=== PATIENT | male | born 1965 ===

== ENCOUNTER 2020-06-28 09:37 | Emergency (ER) | payer BC, SELFPAY ==
[2020-06-28 09:41] VITALS: BP 172/121; PULSE 101; RESP 18; TEMP 36.8; O2SAT 97; BMI 34.7
--- NOTE | 2020-06-28 11:02 | ED_ITS ---
HPI - Back Pain/Injury General Chief Complaint: Back Pain/Injury <SATURNINO Singh Last Filed: 06/28/20 11:13> Stated Complaint: back pain and rt foot pain <SATURNINO Singh Last Filed: 06/28/20 11:13> Time Seen by Provider: 06/28/20 10:19 <SATURNINO Singh Last Filed: 06/28/20 11:13> Source: patient <SATURNINO Singh Last Filed: 06/28/20 11:13> Mode of arrival: ambulatory <SATURNINO Singh Last Filed: 06/28/20 11:13> Limitations: no limitations <SATURNINO Singh Last Filed: 06/28/20 11:13> History of Present Illness HPI Narrative: 55yoM c PMHx of chronic back pain presenting to the ED c c/o worsening right mid to lower back pain since Friday worse today. Reports that he has had this pain in the past and has been prescribed Lidoderm patches and Flexeril by his PCP Dr. Herzog which he is taking without any symptomatic relief. Reports that he is trying to shift his body to compensate for the right mid to lower back pain and this is making his right foot have pain/swelling. I asked him if he had a history of kidney stones he reports he has never had a history of kidney stones and he does not believe this is kidney stones as he is not having any abdominal pain, difficulty urinating, hematuria or any other symptoms. Patient denies any additional complaints or concerns at this time. <SATURNINO Singh Last Filed: 06/28/20 11:13> Related Data Home Medications: Home Medications Medication Instructions Recorded Confirmed No Known Home Meds 06/28/20 06/28/20 Previous Rx's Medication Instructions Recorded cyclobenzaprine 10 mg PO TID PRN #10 tab 06/28/20 naproxen 500 mg PO BID PRN #10 tab 06/28/20 oxycodone-acetaminophen [Percocet] 1 tab PO Q6H PRN #10 tab 06/28/20 prednisone 40 mg PO DAILY 5 Days #10 tab 06/28/20 <SATURNINO Singh Last Filed: 06/28/20 11:13> Allergies/Adverse Reactions: Allergies Allergy/AdvReac Type Severity Reaction Status Date / Time No Known Allergies Allergy Unverified 03/02/20 17:15 <SATURNINO Singh - Last Filed: 06/28/20 11:13> Review of Systems Review of Systems: Constitutional : No trauma, No Weight loss, No Fever, No Chills, ENT/Mouth : No Hearing loss, No Ear Pain, No Nasal Congestion, No Sinus Pain, No Hoarseness, No sore throat, No Rhinorrhea, No Swallowing Difficulty Cardiovascular : No Chest Pain, No SOB Respiratory : No Cough, No Dyspnea Gastrointestinal : No Nausea, No Vomiting, No Diarrhea, No abdominal Pain, No Hematochezia, No Melena Genitourinary : No Dysuria, No Urinary Frequency, No Hematuria, No Urinary or Bowel Incontinence/retention Musculoskeletal : + Back pain, No neck pain, No joint stiffness, No joint swelling Skin : No Skin Lesions, No rash or signs of infection Neuro : No Weakness, No radiation, No Numbness, No Paresthesias, No headache, no loss of bowel or bladder incontinence, no saddle anesthesia Denies history of IV drug usage. <SATURNINO Singh - Last Filed: 06/28/20 11:13> Yes all other systems are reviewed and are negative <SATURNINO Singh - Last Filed: 06/28/20 11:13> [facility] [place] Past Medical History Attestation statement: The following information was validated with the patient. <SATURNINO Singh - Last Filed: 06/28/20 11:13> Medical History: Medical History No known health problems <SATURNINO Singh - Last Filed: 06/28/20 11:13> Social History Social History: Social History Advance Directives: No Advance Directives Information Provided: No <SATURNINO Singh Last Filed: 06/28/20 11:13> Physical Exam Vital Signs: Vital Signs: Last Vital Signs Temp 98.3 F 06/28/20 09:41 Pulse 92 06/28/20 11:37 Resp 18 06/28/20 09:41 BP 151/110 H 06/28/20 11:37 Pulse Ox 97 06/28/20 09:41 Body Mass Index 34.7 vital signs have been reviewed as normal and appeared to be correct. Blood pressure hypertensive. Heart rate tachycardic. Respiration rate normal. Temperature normal. Oxygen saturation normal. <SATURNINO Singh - Last Filed: 06/28/20 11:13> Vital Signs: Last Vital Signs Temp 98.3 F 06/28/20 09:41 Pulse 92 06/28/20 11:37 Resp 18 06/28/20 09:41 BP 151/110 H 06/28/20 11:37 Pulse Ox 97 06/28/20 09:41 Body Mass Index 34.7 <Mark Manning MD - Last Filed: 07/02/20 14:39> Appearance: Alert. Oriented X3. No acute distress. Head: Normal external exam. Normocephalic. Atraumatic. No Dominguez signs noted. No raccoon eyes noted Eyes: PERRLA. EOMI. Conjunctiva and sclera normal. Eyelids normal. ENT: Pharynx normal. Uvula midline. Moist mucous membranes. Neck: Normal inspection. Neck supple. FROM. No adenopathy. No meningeal signs. CVS: Normal heart rate and rhythm. Heart sound normal. No murmurs noted. Pulses normal throughout. Respiratory: No respiratory distress. Painless inspiration. Breath sounds normal. No wheezes/rales/rhonchi noted. Chest nontender. No accessory muscle usage noted or decreased air movement noted. Abdomen: Soft and nontender. Bowel sounds normal in all 4 quadrants. No distention noted. No organomegaly noted. No visible injury noted. Back: No CVA tenderness. Full range of motion noted. No obvious deformities, or edema. Mild para-spinal muscular tenderness from lumbar region to coccyx. Full ROM in back and lower extremities. 5/5 strength hip extension/flexion, abduction, adduction. Mild Lumbar pain with hip flexion against resistance. Straight leg raise test negative on right; Straight leg raise test negative on left; Reflexes normal ankle and knee bilaterally; EHL motor strength normal bilaterally Skin: Skin warm and dry. Normal skin color. Normal skin turgor. No rashes/lesions/lacerations noted. Extremities: No lower extremity edema. No calf tenderness noted. Extremities exhibit normal range of motion. Extremities nontender. Neuro: Oriented X 3. No motor deficit. No sensory deficit. Reflexes normal. <SATURNINO Singh - Last Filed: 06/28/20 11:13> Course Course Course Narrative: Pt c likely muscular pain, but could be herniated disc. Neuro exam shows no deficits. Not c/w AAA/epidural abscess/dissection.No high risk Hx (Incont, fever, immunosupp, recent surgery/LP, coag, signif trauma, wt loss, puls mass, hx/o Ca, TB, or IVDU) to warrant MRI today. I did question a possible kidney stone and offered a CT scan without contrast to evaluate for possible kidney stone although patient declined at this time and reports that if he has persistent pain he will return for a CT scan to evaluate for possible kidney stone although he does not believe it is a kidney stone due to his not having any difficulty urinating, abdominal pain or hematuria. Not c/w Pyelo/UTI/spinal fx. Not cauda equina syndrome. Patient's blood pressure is elevated at 172/121 and is mildly tachycardic 101. Although patient reports this is due to him being in pain and that he does not have any cardiac-related complaints at this time. DC c meds and f/u. <SATURNINO Singh - Last Filed: 06/28/20 11:13> I have reviewed the chart <Mark Manning MD - Last Filed: 07/02/20 14:39> MDM - Back Pain/Injury Differential Diagnosis Differential diagnosis: Likely lumbar radiculopathy, sciatica, strain of lumbar region, renal colic and thoracic back pain <SATURNINO Singh - Last Filed: 06/28/20 11:13> Medical Records Attestation: I reviewed the patient's medical records. <SATURNINO Singh - Last Filed: 06/28/20 11:13> Discharge Plan Discharge Clinical Impression: Strain of lumbar region, Elevated blood pressure reading <SATURNINO Singh - Last Filed: 06/28/20 11:13> Patient Disposition: Home, Self-Care <SATURNINO Singh - Last Filed: 06/28/20 11:13> Instructions: Lumbar Radiculopathy (ED), Hypertension (ED), Lower Back Exercises (ED) <SATURNINO Singh - Last Filed: 06/28/20 11:13> Additional Instructions: You had an elevated blood pressure today at 171/121 if you do not take blood pressure medication you should have this rechecked within a week to see if you have hypertension. If you start having any dizziness, headaches, nausea/vomiting, shortness of breath, chest pain or any other cardiac-related complaints please return back to the emergency department. If you continue to have back pain despite symptomatic treatment you should have a CT scan of her abdomen and pelvis to evaluate for possible kidney stones or any other acute processes. Return if you have any new or worsening symptoms follow-up with her primary care provider within a week for recheck blood pressure. <SATURNINO Singh - Last Filed: 06/28/20 11:13> Prescriptions: New cyclobenzaprine 10 mg tablet 10 mg PO TID PRN (Reason: muscle spasm) Qty: 10 RF: 0 prednisone 20 mg tablet 40 mg PO DAILY 5 Days Qty: 10 RF: 0 oxycodone-acetaminophen [Percocet] 5-325 mg tablet 1 tab PO Q6H PRN (Reason: pain) Qty: 10 RF: 0 naproxen 500 mg tablet 500 mg PO BID PRN (Reason: pain) Qty: 10 RF: 0 No Action No Known Home Meds RF: 0 <SATURNINO Singh - Last Filed: 06/28/20 11:13> Referrals: Mino,Isha Bee MD [Primary Care Provider] - 2 days (Your blood pressure was elevated today although you denied any cardiac-related complaints please have your blood pressure recheck within a week.) <SATURNINO Singh - Last Filed: 06/28/20 11:13> Stand Alone Forms: Work/School Release <SATURNINO Singh - Last Filed: 06/28/20 11:13> Interventions: ED Discharge Assessment Last Done: 06/28/20 11:38 <SATURNINO Singh - Last Filed: 06/28/20 11:13> Discharge Date/Time: 06/28/20 11:38 <SATURNINO Singh - Last Filed: 06/28/20 11:13> Print Language: Swedish <SATURNINO Singh - Last Filed: 06/28/20 11:13>
[2020-06-28 11:37] VITALS: BP 151/110; PULSE 92
== END 2020-06-28 11:38 | disposition home or self-care (01) ==
PROVIDERS: Emergency Provider Emergency Medicine; PCP Internal Medicine
DX: S39.012A Strain of muscle, fascia and tendon of lower back, initial encounter (principal); X58.XXXA Exposure to other specified factors, initial encounter; I10 Essential (primary) hypertension; Y93.9 Activity, unspecified; Y92.9 Unspecified place or not applicable; Y99.9 Unspecified external cause status
CPT/HCPCS: 99283

== ENCOUNTER 2020-11-21 14:42 | Outpatient (REF) | payer BC, SELFPAY | END 2020-11-21 14:43 | disposition home or self-care (01) | LOC: HO.HMGCLDS 14:42 | PROVIDERS: PCP Internal Medicine; Visit Provider Internal Medicine | DX: Z20.822 Contact with and (suspected) exposure to COVID-19 (principal) | CPT/HCPCS: C9803; U0003; U0005 ==

== ENCOUNTER 2023-01-27 14:58 | Outpatient (AMB) | payer BC, SELFPAY ==
--- NOTE | 2023-01-27 16:26 | MHC.OFFWIV ---
Intake Vital Signs 01/27/23 16:27 Weight 205 lb BP 140/90 H Blood Pressure Location Rt brachial Position Sitting Pulse 108 H Pulse Source Pulse Oximeter Pulse Oximetry (%) 95 Oxygen Delivery Method Room Air Intake Visit Reasons: EP, Pus in head Intake Note: Patient here for lump on right side of head that has discharge. pt states he has a hx of these from when he was younger and they normally drain and go away within a few days but this one has not. pt states it started with a small lump and then felt some pulsating every so often but it will not go away, he states it drained a bit. Patient Tobacco Use Status: Never used Tobacco Allergies No Known Allergies Allergy (Verified 01/27/23 19:46) Medication List - Last Reconciled 01/27/23 by Ricardo Espinosa MD hydrochlorothiazide 12.5 mg PO DAILY naltrexone 25 mg (1/2 x 50 mg) PO DAILY sulfamethoxazole-trimethoprim 800-160 mg (Bactrim DS) 1 tab PO BID 7 days vardenafil 20 mg PO DAILY Do you need a note to return to daycare/school/sports/work: No HPI EP, Pus in head HPI Details 57-year-old male presents to the office for a sick visit. Patient has an infection on the right side of his head above his right ear, symptoms of pain present. Symptoms present for the past few days. [facility] Medical History (Updated 01/27/23 @ 19:50 by Ricardo Espinosa MD) Erectile dysfunction Hypercholesterolemia Lumbar degenerative disc disease No known health problems Obesity (BMI 30-39.9) Surgical History (Updated 01/31/21 @ 20:33 by Isha Herzog MD) History of bilateral carpal tunnel release Social History (Updated 02/05/22 @ 15:30 by Isha Herzog MD) Housing: House Alcohol intake: current Patient Tobacco Use Status: Never used Tobacco e-Cigarette/Vaping Use: Never Used Second Hand Smoke Exposure: No service: No Current occupational status: employed Cognitive needs: No Hearing needs: No Vision needs: No Physical Exam Vital Signs: Last Vital Signs Pulse 108 H 01/27/23 16:27 BP 140/90 H 01/27/23 16:27 Pulse Ox 95 01/27/23 16:27 Oxygen Delivery Method Room Air 01/27/23 16:27 HEENT Other: Scalp: Right temporal area about the ear: Small erythematous area with tiny amount of pus. Surrounding area slightly tender. Assessment & Plan Assessment & Plan (1) Cellulitis: Code(s): L03.90 - Cellulitis, unspecified Plan: Cephalexin called in. Will call the surgeon tomorrow to see if this wound can be drained. Medications: New sulfamethoxazole-trimethoprim 800-160 mg (Bactrim DS) 1 tab PO BID 7 days 14 tabs 0RF Coding Level of Care Code Est Pt Level 3 (35850) Diagnoses Cellulitis L03.90
[2023-01-27 16:27] VITALS: BP 140/90; PULSE 108; O2SAT 95
== END 2023-01-27 16:53 | disposition home or self-care (01) ==
PROVIDERS: PCP Internal Medicine; Visit Provider Internal Medicine
DX: L03.90 Cellulitis, unspecified (principal)
CPT/HCPCS: 99213

== ENCOUNTER 2023-01-28 14:16 | Outpatient (AMB) | payer BC, SELFPAY ==
--- NOTE | 2023-01-28 14:33 | MHC.OFFVIS ---
Intake Vital Signs 01/28/23 14:40 Height 5 ft 6 in Weight 203 lb 6 oz BMI 32.8 BP 144/88 H Blood Pressure Location Lt brachial Position Sitting Pulse 104 H Intake Visit Reasons: cellulitis right temporal, on abx Intake Note: Patient is seen in office for evaluation and treatment of cellulitis of right scientology. Patient c/o: lump behind right ear, onset one weeks, started discharging on Friday, currently taking antibiotics since yesterday would like to change antbx due to upset stomach, admits to redness and discharge Base Ply Hand Required: No Accompanied by: Self / Same As Patient Allergies No Known Allergies Allergy (Verified 01/28/23 14:40) Medication List - Last Reconciled 01/28/23 by Sean Obando MD doxycycline hyclate 100 mg PO BID hydrochlorothiazide 12.5 mg PO DAILY naltrexone 25 mg (1/2 x 50 mg) PO DAILY vardenafil 20 mg PO DAILY HPI HPI Comments History of Present Illness Details 57-year-old male patient presenting with a painful infected cyst of the right scalp behind the right ear. He reports a previous history of a scalp infection as a child on the left side but denies any other areas of infection. The current cyst began approximately week ago became quite red and painful. He was seen and the [place] office and started on antibiotics yesterday. He presents today for possible incision and drainage. The lesion started opening 2 days ago. He continued to have pain until yesterday when he started antibiotics which actually helped the pain. He denies any fever or chills. [facility] Medical History Erectile dysfunction Hypercholesterolemia Lumbar degenerative disc disease No known health problems Obesity (BMI 30-39.9) Surgical History History of bilateral carpal tunnel release Social History Housing: House Alcohol intake: current Patient Tobacco Use Status: Never used Tobacco e-Cigarette/Vaping Use: Never Used Second Hand Smoke Exposure: No service: No Current occupational status: employed Cognitive needs: No Hearing needs: No Vision needs: No Review of Systems Const All systems reviewed & are unremarkable except as noted in HPI and below Denies chills, Denies fever(s), Denies headache(s), Denies poor appetite and Denies weakness ENT Denies headache(s) Card Denies chest pain, Denies irregular heart rhythm, Denies palpitations and Denies dyspnea Resp Denies cough, Denies excessive phlegm production and Denies dyspnea GI Denies abdominal pain, Denies bloating, Denies change in bowel habits, Denies constipation, Denies heartburn, Denies diarrhea, Denies nausea and Denies vomiting Denies difficulty urinating and Denies urinary frequency Musc Denies back pain, Denies muscle weakness and Denies numbness Skin/Breast Reports as per HPI, Denies changing lesions and Denies unusual bruising Neuro Denies headache(s), Denies numbness, Denies paresthesias and Denies weakness Psych Denies anxiety and Denies depression Endo Denies palpitations Guille/Lymph Denies lymphadenopathy Physical Exam Vital Signs: Last Vital Signs Pulse 104 H 01/28/23 14:40 BP 144/88 H 01/28/23 14:40 BMI result Body Mass Index 32.8 Const General: cooperative and no acute distress Nutritional Appearance: well nourished Orientation/consciousness: patient oriented x3 Limitations: no limitations HEENT Head: Yes normocephalic and Yes atraumatic Head images: 1. Infected sebaceous cyst of the posterior scalp and postauricular region with surrounding area of erythema/cellulitis. Lesion is fluctuant but draining a small amount of purulence discharge. Ears: hearing grossly normal bilaterally Resp Effort & Inspection: normal respiratory effort, no audible wheezes, no cough and no respiratory distress Cardio Jugular venous distension: no JVD GI Inspection: Yes normal to inspection Skin Other: Warm, dry, no rash Neuro General: patient oriented x3 Extrem General: Yes no clubbing, cyanosis or edema Office Procedures I&D Drain Details: Preoperative diagnosis: Infected sebaceous cyst abscess right scalp Postoperative diagnosis: Same Procedure: Incision and drainage sebaceous cyst abscess right scalp Surgeon: Sean Obando MD Worsted Winder: None Anesthesia: Lidocaine 1% with epinephrine Indications for procedure: 57-year-old male patient with an infected sebaceous cyst of the posterior right scalp as noted above Operative findings: Abscess posterior right scalp Specimen: None Estimated blood loss: Less than 2 mL Complications: None Procedure details: Patient was placed in a left lateral decubitus position. The patient's scalp on the right side was prepped with Betadine and draped in a sterile fashion. Local anesthesia was infiltrated around the lesion. Incision was then made with an 11 blade. Hemostat was then used to open up the abscess cavity. This was then irrigated with saline solution. Packing was inserted using quarter-inch Nu Gauze. Sterile dressings were then applied. The patient tolerated the procedure well. He was discharged to home in stable condition. [id number]-Kleelfpb of Skin Abscess, simple All charges added?: Procedure code (CPT) selection complete Assessment & Plan Assessment & Plan (1) Abscess of head: Code(s): L02.811 - Cutaneous abscess of head [any part, except face] Plan 57-year-old male patient presenting with an abscess of the posterior scalp right side suggestive of an infected sebaceous cyst. I recommended incision and drainage to allow complete drainage. After discussion of the procedure, risks, and alternatives, he consents to the procedure. This was performed today in the office with production of a larger collection of purulence fluid. Packing was inserted as well. The patient tolerated the procedure well and will return in 1 week for follow-up examination. He reports stomach irritation from the antibiotics afraid he will be switched to doxycycline. Medications: New doxycycline hyclate 100 mg PO BID 14 tabs 0RF L02.811 - Cutaneous abscess of head [any part, except face] Coding Level of Care Code New Pt Level 4 (53525) Diagnoses Abscess of head L02.811 CPT Codes I&D Drain - Drain 1: 28006-Fypgrygh of Skin Abscess, simple ([id number])
[2023-01-28 14:40] VITALS: BP 144/88; PULSE 104; BMI 32.8
== END 2023-01-28 14:58 | disposition home or self-care (01) ==
PROVIDERS: PCP Internal Medicine; Referring Provider Internal Medicine; Visit Provider Surgery
DX: L72.3 Sebaceous cyst (principal); L02.811 Cutaneous abscess of head [any part, except face]
CPT/HCPCS: 10060; 99204

== ENCOUNTER → 2023-01-28 14:16 | Outpatient (BNVA) | payer BC, SELFPAY | PROVIDERS: PCP Internal Medicine; Referring Provider Internal Medicine; Visit Provider Surgery | DX: L02.811 Cutaneous abscess of head [any part, except face] (principal) | CPT/HCPCS: 10060 ==

== ENCOUNTER 2023-02-04 15:11 | Outpatient (AMB) | payer BC, SELFPAY ==
--- NOTE | 2023-02-04 15:12 | MHC.OFFVIS ---
Intake Vital Signs 02/04/23 15:17 Height 5 ft 6 in Weight 196 lb 2 oz BMI 31.7 BP 154/100 H Blood Pressure Location Lt brachial Position Sitting Pulse 101 H Intake Visit Reasons: s/p I&D abscess right temporal Intake Note: Patient is seen in office for post op assessment post I&D of right temporal abscess. 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 He tolerated the procedure well and feels much improved today. He denies any redness or discharge and generally feels back to normal. He does have some itchiness in the skin. [facility] Medical History Erectile dysfunction Hypercholesterolemia Lumbar degenerative disc disease No known health problems Obesity (BMI 30-39.9) Surgical History History of bilateral carpal tunnel release Social History Housing: House Alcohol intake: current Patient Tobacco Use Status: Never used Tobacco e-Cigarette/Vaping Use: Never Used Second Hand Smoke Exposure: No service: No Current occupational status: employed Cognitive needs: No Hearing needs: No Vision needs: No Physical Exam Const General: no acute distress Nutritional Appearance: well nourished Orientation/consciousness: patient oriented x3 HEENT Other: Incision and drainage site is healed without redness or fluctuance. Nontender to palpation. Previous cellulitis is now resolved. Head images: 1. Incision and drainage site posterior right scalp Neuro General: patient oriented x3 Assessment & Plan Assessment & Plan (1) Abscess of head: Code(s): L02.811 - Cutaneous abscess of head [any part, except face] Plan Patient returns 1 week following incision and drainage of an abscess of the posterior right scalp. He tolerated the procedure well and his wounds are well healed. He should follow up as needed. Coding Level of Care Code Global (53327) Diagnoses Abscess of head L02.811
[2023-02-04 15:17] VITALS: BP 154/100; PULSE 101; BMI 31.7
== END 2023-02-04 15:19 | disposition home or self-care (01) ==
PROVIDERS: PCP Internal Medicine; Visit Provider Surgery
DX: L02.811 Cutaneous abscess of head [any part, except face] (principal)
CPT/HCPCS: 99024

== ENCOUNTER → 2023-02-04 15:11 | Outpatient (BNVA) | payer BC, SELFPAY | PROVIDERS: PCP Internal Medicine; Visit Provider Surgery | DX: L02.811 Cutaneous abscess of head [any part, except face] (principal) ==

== ENCOUNTER 2023-04-19 09:12 | Outpatient (AMB) | payer BC, SELFPAY ==
--- NOTE | 2023-04-19 09:44 | AM.OFFWIN_ITS ---
Intake Vital Signs 04/19/23 09:50 Height 5 ft 6 in Weight 184 lb 6 oz BMI 29.8 BP 142/78 H Blood Pressure Location Lt brachial Position Sitting Pulse 110 H Pulse Source Pulse Oximeter Temp 98.0 F Temp Source Temporal Artery Scan Pulse Oximetry (%) 97 Oxygen Delivery Method Room Air Intake Visit Reasons: EP Pain LT under rib cage Intake Note: pt is here for c/o left side rib/kidney area pain for 3 weeks Patient Tobacco Use Status: Never used Tobacco Allergies No Known Allergies Allergy (Verified 04/19/23 09:51) Do you need a note to return to daycare/school/sports/work: Yes HPI EP Pain LT under rib cage HPI Details Patient is a 58-year-old male who comes to the walk-in clinic complaining of a dull aching pain to his left flank the last 2-3 weeks. He states that he has also noticed some weight loss recently. He denies any issues urinating, or with bowel movements. He has no respiratory symptoms, fever or chills, nausea vomiting or diarrhea chest pain or shortness of breath, weakness or dizziness, other significant associated symptoms. He states that he sees Dr. Braun, and that he is due to have some blood work done for him. He is planning to see him in late June, but was unable to the appointment up. He has been taking anti-inflammatories which does somewhat relieve his discomfort. No immunosuppressive conditions reported. [facility] Medical History Obesity (BMI 30-39.9) Lumbar degenerative disc disease Erectile dysfunction Hypercholesterolemia No known health problems Surgical History History of bilateral carpal tunnel release Social History Housing: House Alcohol intake: current Patient Tobacco Use Status: Never used Tobacco e-Cigarette/Vaping Use: Never Used Second Hand Smoke Exposure: No service: No Current occupational status: employed Cognitive needs: No Hearing needs: No Vision needs: No Review of Systems Const All systems reviewed & are unremarkable except as noted in HPI and below Physical Exam Vital Signs: Last Vital Signs Temp 98.0 F 04/19/23 09:50 Pulse 110 H 04/19/23 09:50 BP 142/78 H 04/19/23 09:50 Pulse Ox 97 04/19/23 09:50 Oxygen Delivery Method Room Air 04/19/23 09:50 BMI result Body Mass Index 29.8 Const General: cooperative, healthy appearing, comfortable, no acute distress, alert, awake, Physically active and well groomed; No anxious, diaphoretic, ill appearing, intoxicated appearing, poor hygiene or tired appearing Nutritional Appearance: average body habitus Orientation/consciousness: oriented to person Limitations: no limitations Resp Effort & Inspection: normal respiratory effort, able to speak in complete sentences, no audible wheezes, no cough, no grunting, not labored, no nasal flaring, no retractions and symmetric chest movement Auscultation: clear to auscultation bilaterally, no crackles, no rales, no rhonchi, no wheezes, lung sounds not diminished and No rub present Cardio Rate: regular rate Rhythm: regular rhythm GI Inspection: Yes normal to inspection, No Abdominal wall edema, No distended and No obesity Palpation (GI): Soft to palpation, not firm, Tenderness to palpation present (GI) (Left flank), not rigid, No hepatosplenomegaly present, no masses and No Ascites present Percussion: Yes normal to percussion Auscultation: normal bowel sounds Other: Left flank tender to palpation General: No CVA tenderness Back/Spine/Pelvis Back: No CVA tenderness Skin Other: Good color, warm and dry Neuro General: oriented to person Psych Appearance: grossly normal Mental Status: mental status grossly normal Speech and movement: Normal speech and movement present Affect: normal affect Attitude: cooperative Thought process: Normal thought process present Insight: Good insight present (Psych) Judgement: Good judgement present (Psych) Results AMB Urinalysis, Automated UA Leukoctes 0 Deana/uL Last Edit by Robert Lawrence CMA on 04/19/23 11:05 UA Nitrite Negative Last Edit by Robert Lawrence CMA on 04/19/23 11:05 UA Urobilinogen 0.2 mg/dL Last Edit by Robert Lawrence CMA on 04/19/23 11 :05 UA Protein 300 mg/dL Last Edit by Robert Lawrence CMA on 04/19/23 11:05 UA pH 6.0 Last Edit by Robert Lawrence CMA on 04/19/23 11:05 UA Blood 80 Eugenio/uL Last Edit by Robert Lawrence CMA on 04/19/23 11:05 UA Specific [place] 1.030 Last Edit by Robert Lawrence CMA on 04/19/23 11:05 UA Ketone Positive Last Edit by Robert Lawrence CMA on 04/19/23 11:05 UA Bilirubin 0 mg/dL Last Edit by Robert Lawrence CMA on 04/19/23 11:05 UA Glucose 1000 mg/dL Last Edit by Robert Lawrence CMA on 04/19/23 11:05 Results Reviewed Results Reviewed: Laboratory Last Values Urine pH (Auto) 6.0 04/19/23 11:04 Specific [place] (Auto) 1.030 04/19/23 11:04 Urine Protein (Auto) 300 mg/dL 04/19/23 11:04 Glucose (UA)(Auto) 1000 mg/dL 04/19/23 11:04 Urine Ketones (Auto) Positive 04/19/23 11:04 Urine Blood (Auto) 80 Eugenio/uL 04/19/23 11:04 Urine Nitrite (Auto) Negative 04/19/23 11:04 Urine Bilirubin (Auto) 0 mg/dL 04/19/23 11:04 Urine Urobilinogen (Auto) 0.2 mg/dL 04/19/23 11:04 Leukocyte Esterase (Auto) 0 Deana/uL 04/19/23 11:04 Assessment & Plan Assessment & Plan (1) Flank pain, acute: Code(s): R10.9 - Unspecified abdominal pain Plan: Patient complains of left flank discomfort for the last 2-3 weeks, associated with weight loss. KUB plain film x-ray today was unremarkable for acute issues. We did discuss that he could have a kidney stone, or pyelonephritis starting, or another kidney issue. His vital signs are stable though, and he is appropriate for outpatient follow up. His in office urine dip was remarkable for proteinuria, ketones, hematuria, and glucosuria. I did start him on antibiotic due to the abnormal urine, and it is pending culture and microscopy testing. He had some labs drawn today, and we can follow up with the results with PCP. I told patient that I would send his visit note over to his PCP to see if they want to see him sooner, as he isn't scheduled until the end of June for a follow-up. He knows to call them back sooner if symptoms return, or he can be evaluated here again. He knows to go to the emergency department with worrisome symptoms. Orders: Orders XR KUB 04/19/23 R10.9 - Unspecified abdominal pain Complete Blood Count Auto Diff 04/19/23 R10.9 - Unspecified abdominal pain AMB Urinalysis Automated 04/19/23 M54.50 - Low back pain, unspecified UA CC w/rflx Micro + Cult 04/19/23 R30.0 - Dysuria Comprehensive [place]. Panel Fast 04/19/23 R10.9 - Unspecified abdominal pain Medications: New sulfamethoxazole-trimethoprim 800-160 mg (Bactrim DS) 1 tab PO BID 7 days 14 tabs 0RF naproxen 500 mg PO BID 14 days PRN 28 tabs 0RF pain Coding Level of Care Code Est Pt Level 4 (82989) Diagnoses Flank pain, acute R10.9
[2023-04-19 09:50] VITALS: BP 142/78; PULSE 110; TEMP 36.7; O2SAT 97; BMI 29.8
== END 2023-04-19 11:34 | disposition home or self-care (01) ==
PROVIDERS: PCP Internal Medicine; Visit Provider Physician Assistant Medical
DX: R10.9 Unspecified abdominal pain (principal); M54.50 Low back pain, unspecified
CPT/HCPCS: 81003; 99214

== ENCOUNTER 2023-04-19 10:45 | Outpatient (REF) | payer BC, SELFPAY ==
--- NOTE | ~2023-04-19 | XR_ITS ---
EXAMINATION: XR ABDOMEN KUB CLINICAL INDICATION: Abdominal pain. Left flank pain 2 weeks. No trauma. COMPARISON: None available. TECHNIQUE: AP view of the abdomen. FINDINGS: The bowel gas pattern is normal with no evidence of ileus or obstruction. No unusual soft tissue calcifications are noted. The bones are unremarkable. XR/XR KUB IMPRESSION: Unremarkable examination.
[2023-04-19 13:34] LABS: MANUAL DIFF FLAG NO
[2023-04-19 13:38] LABS: Basophils Percent Auto 0.6 % (0-2); Eosinophils Percent Auto 0.4 % (0-4); Hematocrit 40.2 % (42.0-52.0); Hemoglobin 14.4 g/dl (14.0-18.0); Imm Gran Abs Auto 0.03 X10*3/uL (0.00-0.03); Imm Gran Pct Auto 0.4 % (0.0-0.4); Lymphocytes Percent Auto 13.1 % (20-40); Mean Corpuscular HGB Conc 35.8 g/dl (31.0-36.0); Mean Corpuscular Hemoglobin 33.6 pg (27.0-33.0); Mean Corpuscular Volume 93.7 fL (80.0-98.0); Mean Platelet Volume 10.1 fL (9.4-12.4); Monocytes Absolute Auto 0.7 X10*3/uL (0.1-1.2); Neutrophils Absolute Auto 5.6 x10*3/uL (2.0-8.3); Neutrophils Percent Auto 76.5 % (45-73); Platelet Count 251 X10*3/uL (160-400); Red Blood Count 4.29 X10*6/uL (4.60-5.80); Red Cell Distribution Width 11.7 % (11.0-16.0); White Blood Count 7.3 X10*3/uL (4.8-10.8)
[2023-04-19 13:46] LABS: Estimated Average Glucose 303 mg/dL; Hemoglobin A1c % 12.2 % (<6.0)
[2023-04-19 14:02] LABS: Alanine Aminotransferase 26 U/L (0-40); Albumin Level 4.2 g/dL (3.5-5.0); Alkaline Phosphatase 180 U/L (39-117); Anion Gap 18 (12-20); Aspartate Amino Transferase 17 U/L (5-37); Bilirubin Total 0.5 mg/dL (0.0-1.0); Blood Urea Nitrogen 9 mg/dL (9-16); Carbon Dioxide 25 mmol/L (22-29); Chloride 101 mmol/L (96-108); Cholesterol 263 mg/dL (<200); Estimated Glomerular Filt Rate > 60; Glucose Fasting 226 mg/dL (60-99); Glucose Random 225 mg/dL (60-115); HDL Cholesterol 32 mg/dL (>40); Sodium 140 mmol/L (135-145); Total Protein 7.8 g/dL (6.5-8.0); Triglycerides 455 mg/dL (<150)
[2023-04-19 14:16] LABS: Free T4 (Free Thyroxine) 0.95 ng/dL (0.71-1.85); Thyroid Stimulating Hormone 0.35 uIU/mL (0.32-4.0)
[2023-04-19 14:30] LABS: Folate 13.6 ng/mL (> or = 4.0); Prostate Specific Antigen Scr 1.11 ng/mL (<0.05-4.0); Vitamin B12 354 pg/mL (200-900)
== END 2023-04-19 10:46 | disposition home or self-care (01) ==
LOC: HO.HMGCX 10:45
PROVIDERS: PCP Internal Medicine; Visit Provider Physician Assistant Medical
DX: Z12.5 Encounter for screening for malignant neoplasm of prostate (principal); R10.9 Unspecified abdominal pain; I10 Essential (primary) hypertension; R73.02 Impaired glucose tolerance (oral); E78.00 Pure hypercholesterolemia, unspecified
CPT/HCPCS: 36415; 74018; 80053; 80061; 82607; 82746; 83036; 84153; 84439; 84443; 85025

== ENCOUNTER 2023-04-19 11:45 | Outpatient (REF) | payer BC, SELFPAY ==
[2023-04-19 13:39] LABS: Appearance Urine Cloudy; Color Urine Yellow; Glucose Urine UA >=1000 mg/dL (Negative); Leukocyte Esterase Urine Trace (Negative); Nitrite Urine Negative (Negative); PH 5.5 (5.0-9.0); Specific Gravity - Urine >= 1.030 (1.005-1.025); UMIC TRIGGER UACC YES; Urine Blood Moderate (2+) (Negative); Urine Ketones >=160 mg/dL (Negative); Urine Protein 100 (2+) mg/dL (Neg-Trace)
[2023-04-19 13:56] LABS: Bacteria Urine None Seen (None Seen); Squamous Epithelial Cell Urine 0-2 /HPF (0-2); UACC Culture Trigger YES
== END 2023-04-19 11:46 | disposition home or self-care (01) ==
LOC: HO.LAB 11:45
PROVIDERS: Visit Provider Physician Assistant Medical
DX: R30.0 Dysuria (principal)
CPT/HCPCS: 81001; 87086

== ENCOUNTER 2023-04-24 12:43 | Outpatient (AMB) | payer BC, SELFPAY ==
[2023-04-24 12:48] VITALS: BP 152/82; PULSE 104; O2SAT 98; BMI 29.5
--- NOTE | 2023-04-24 12:48 | MHC.PC.OV ---
Vital Signs 04/24/23 12:48 Height 5 ft 6 in Weight 183 lb BMI 29.5 BP 152/82 H Blood Pressure Location Lt brachial Position Sitting Pulse 104 H Pulse Source Pulse Oximeter Pulse Oximetry (%) 98 Oxygen Delivery Method Room Air Intake Visit Reasons: Follow up after walk in visit on 04/19 Allergies No Known Allergies Allergy (Verified 04/19/23 09:51) Medication List - Last Reconciled 04/24/23 by Isha Herzog MD blood sugar diagnostic (FreeStyle Lite Strips) As directed check the BS QD blood-glucose meter (FreeStyle Lite Meter kit) As directed hydrochlorothiazide 12.5 mg PO DAILY lancets (FreeStyle Lancets) As directed check BS QD lisinopril 5 mg PO DAILY metformin 500 mg PO BIDWMEAL naltrexone 25 mg (1/2 x 50 mg) PO DAILY naproxen 500 mg PO BID PRN 14 days sulfamethoxazole-trimethoprim 800-160 mg (Bactrim DS) 1 tab PO BID 7 days vardenafil 20 mg PO DAILY Tobacco use date assessed: 04/24/23 Dental Screening Dental Screen Date: 04/24/23 Did you have a dental visit in the last 12 months?: No Did you have a dental problem in the last 6 months where you did not have access to dental care?: No Was dental information given to patient?: Patient has dentist HPI Follow up after walk in visit on 04/19 HPI Details 58-year-old obese male with newly diagnosed diabetes mellitus hypertension hypercholesterolemia and history of alcohol abuse coming in for follow-up. Last seen in January 2022. Recently seen in the Urgent Center in April for flank pains left in January was seen by the surgeon for an abscess on the head which was drained [facility] Medical History (Updated 04/24/23 @ 12:56 by Isha Herzog MD) Impaired glucose tolerance Obesity (BMI 30-39.9) Lumbar degenerative disc disease Erectile dysfunction Hypercholesterolemia No known health problems Surgical History History of bilateral carpal tunnel release Social History Housing: House Alcohol intake: current Patient Tobacco Use Status: Never used Tobacco e-Cigarette/Vaping Use: Never Used Second Hand Smoke Exposure: No service: No Current occupational status: employed Cognitive needs: No Hearing needs: No Vision needs: Yes Questionnaire PHQ-9 Over the last 2 weeks, how often have you been bothered by any of the following problems? 1. Little interest or pleasure in doing things: not at all 2. Feeling down, depressed, or hopeless: not at all 3. Trouble falling or staying asleep, or sleeping too much: not at all 4. Feeling tired or having little energy: not at all 5. Poor appetite or overeating: not at all 6. Feeling bad about yourself - or that you are a failure or have let yourself or your family down: not at all 7. Trouble concentrating on things, such as reading the newspaper or watching television: not at all 8. Moving or speaking so slowly that other people could have noticed. Or the opposite - being so fidgety or restless that you have been moving around a lot more than usual: not at all 9. Thoughts that you would be better off or of hurting yourself in some way: not at all Total score: 0 Depression Screening Interpretation: Negative Depression Screening Done: Yes Source: Developed by Drs. Len Villatoro, Riya Ignacio, Favio Breen and colleagues, with an educational irena from [employer]. Thrive Questionnaire Date Thrive assessed: 04/24/23 I am a: Patient What is your living situation today?: I have a steady place to live Within the past 12 months, did the food you bought not last and you didn't have the money to get more?: Never true Within the past 12 months, did you worry whether your food would run out before you got money to buy more?: Never true Do you have trouble paying for medicines?: No Do you have trouble getting transportation to medical appointments?: No Do you have trouble paying your heating and electricity bill?: No Do you have trouble taking care of your child, family member or friend?: No Do you have trouble with day-to-day activities such as bathing, preparing meals, shopping, managing finances, etc.?: No Are you currently unemployed and looking for a job?: No Are you interested in more education?: No Currently or been in a relationship where the following occur: no concerns reported AUDIT C Alcohol Use Questionnaire (AUDIT-C) 1. How often do you have a drink containing alcohol?: Monthly or less 2. How many drinks containing alcohol do you have on a typical day when you are drinking?: 1 or 2 3. How often do you have six or more drinks on one occasion?: Never Total Score: 1 TOREY-7 AMB Questionnaire TOREY-7 Date TOREY - 7 assessed: 04/24/23 Feeling nervous, anxious, or on edge: 0 = Not at all Not being able to stop or control worryin = Not at all Worrying too much about different things: 0 = Not at all Trouble relaxin = Not at all Being so restless that it is hard to sit still: 0 = Not at all Becoming easily annoyed or irritable: 0 = Not at all Feeling afraid as if something awful might happen: 0 = Not at all Total TOREY-7 score (0-4 normal; 5-9 mild; 10-14 moderate; 15-21 severe): 0 Source: Developed by Drs. Len Villatoro, Riya Ignacio, Favio Breen and colleagues, with an educational irena from [employer]. Physical exam (Primary Care) Vital Signs: Last Vital Signs Pulse 104 H 04/24/23 12:48 BP 152/82 H 04/24/23 12:48 Pulse Ox 98 04/24/23 12:48 Oxygen Delivery Method Room Air 04/24/23 12:48 BMI result Body Mass Index 29.5 Tobacco/Smoking Status: Tobacco use Status Tobacco use date assessed 04/24/23 04/24/23 12:50 Patient Tobacco Use Status Never used Tobacco 04/24/23 12:50 e-Cigarette/Vaping Use Never Used 04/24/23 12:50 PHQ-9: PHQ-9 Score PHQ-9: Total score 0 04/24/23 12:50 Depression Screening Interpretation: Negative Thrive Assessment: Date of Thrive Assessment Date Thrive assessed 04/24/23 04/24/23 12:50 Currently or been in a relationship where the following occur: no concerns reported Const General: alert; No acute distress Eyes Conjunctivae: conjunctivae normal Resp Auscultation: clear to auscultation bilaterally Cardio Rate: regular rate Rhythm: regular rhythm GI Inspection: Yes normal to inspection Extrem General: Yes normal to inspection and No edema Assessment and Plan Assessment & Plan (1) Type 2 diabetes mellitus with hyperglycemia: Code(s): E11.65 - Type 2 diabetes mellitus with hyperglycemia Plan: Decrease the amount of carbohydrate intake, pasta, bread, rice and potatoes are all sugar and that is aside from all the sweet stuff, remember that fruits are good but they are Sweet also. Hemoglobin A1c goal of less than 6.5 (2) Overweight (BMI 25.0-29.9): Code(s): E66.3 - Overweight Plan: Diet and exercise keep well hydrated (3) Hypercholesterolemia: Code(s): E78.00 - Pure hypercholesterolemia, unspecified Plan: Avoid fried foods, chicken skin, eggs, butter margarine, pastries and meat. Be it pork or beef they have a lot of cholesterol LDL goal of less than 100 and triglyceride of less than 150 (4) Hypertension: Code(s): I10 - Essential (primary) hypertension Plan: Will start on blood pressure medication Orders: Orders Lipid Panel Today E78.00 - Pure hypercholesterolemia, unspecified Microalbumin, Random (w Creat) Today E11.65 - Type 2 diabetes mellitus with hyperglycemia, E78.00 - Pure hypercholesterolemia, unspecified Creatinine Urine Today E11.65 - Type 2 diabetes mellitus with hyperglycemia, E78.00 - Pure hypercholesterolemia, unspecified Complete Blood Count Auto Diff Today E78.00 - Pure hypercholesterolemia, unspecified Comprehensive Met. Panel Today E78.00 - Pure hypercholesterolemia, unspecified Hemoglobin A1c Today E78.00 - Pure hypercholesterolemia, unspecified Referrals Ophthalmology Referral E11.65 - Type 2 diabetes mellitus with hyperglycemia Nutrition/Dietitian Referral E11.65 - Type 2 diabetes mellitus with hyperglycemia Medications: New lisinopril 5 mg PO DAILY 30 tabs 3RF I10 - Essential (primary) hypertension blood sugar diagnostic (FreeStyle Lite Strips) As directed check the BS QD 100 ea 3RF E11.65 - Type 2 diabetes mellitus with hyperglycemia, R73.02 - Impaired glucose tolerance (oral) metformin 500 mg PO BIDWMEAL 60 tabs 4RF E11.65 - Type 2 diabetes mellitus with hyperglycemia blood-glucose meter (FreeStyle Lite Meter kit) As directed 1 ea 0RF E11.65 - Type 2 diabetes mellitus with hyperglycemia lancets (FreeStyle Lancets) As directed check BS QD 100 ea 3RF E11.65 - Type 2 diabetes mellitus with hyperglycemia Coding Level of Care Code Est Pt Level 4 (26342) Diagnoses Type 2 diabetes mellitus with hyperglycemia E11.65 Overweight (BMI 25.0-29.9) E66.3 Hypercholesterolemia E78.00 Hypertension I10
== END 2023-04-24 14:13 | disposition home or self-care (01) ==
PROVIDERS: PCP Internal Medicine; Visit Provider Internal Medicine
DX: E11.65 Type 2 diabetes mellitus with hyperglycemia (principal); E66.3 Overweight; E78.00 Pure hypercholesterolemia, unspecified; I10 Essential (primary) hypertension
CPT/HCPCS: 99214

== ENCOUNTER 2023-06-18 14:26 | Outpatient (AMB) | payer BC, SELFPAY ==
--- NOTE | 2023-06-18 14:32 | A.OFFVIS_ITS ---
Intake VS Expanded 06/18/23 14:33 06/25/23 13:18 Height 5 ft 6 in 5 ft 6 in Weight 190 lb 14.725 oz 191 lb BMI 30.8 30.8 Intake Visit Reasons: T2DM hyperglycemia/ CONFIRMED Allergies No Known Allergies Allergy (Verified 04/19/23 09:51) HPI Nutrition Presentation Details Pt presents for MNT for T2DM, dx in 04/2023. Pt was referred by Dr. 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 B: cheerios 1 % Milk , 1 slice of potato bread and peanut butter , water L: ham/cheese sandwich or fruit Dinner: rice/carbajal/chicken or may eat out fast food typical food intake fruit: 2 day vegetables: 3 serving /d dairy: 4+ serving/d starches > 20 serving/d protein foods: beef/pork/poultry/eggs, no fish soda: 36+oz soda in a week QJE-Abcjluh-Wc.Jeor Equation Height 5 ft 6 in Weight 191 lb Resting Metabolic Rate 1642.73 Calculated Activity Level Mild Activity Calories Needed to Maintain Weight 2258.75 Diagnosis Nutrition problem #1 food nutri know defi As related to (etiology) #1 diagnosis As evidenced by (sign/symptom) #1 elevated HgbA1c (12.2 on 04/2023) Monitoring/Goals Nutrition problem monitoring level of knowledge/skill, total CHO intake and oral fluids Learning/Education Readiness to learn good Stages of change action Educational materials provided Yes (meal planning) Most Recent Diabetes Results: Cholesterol 263 mg/dL (<200) H 04/19/23 HDL Cholesterol 32 mg/dL (>40) L 04/19/23 Triglycerides 455 mg/dL (<150) H 04/19/23 Creatinine 0.79 mg/dL (0.5-1.4) 04/19/23 Blood Urea Nitrogen 9 mg/dL (9-16) 04/19/23 Sodium 140 mmol/L (135-145) 04/19/23 Potassium 4.0 mmol/L (3.3-5.1) 04/19/23 Chloride 101 mmol/L (96-108) 04/19/23 Carbon Dioxide 25 mmol/L (22-29) 04/19/23 Calcium 10.0 mg/dL (8.4-10.2) 04/19/23 AST 17 U/L (5-37) 04/19/23 ALT 26 U/L (0-40) 04/19/23 Total Protein 7.8 g/dL (6.5-8.0) 04/19/23 Albumin 4.2 g/dL (3.5-5.0) 04/19/23 [facility] Medical History (Updated 04/24/23 @ 12:56 by Isha Herzog MD) Impaired glucose tolerance Obesity (BMI 30-39.9) Lumbar degenerative disc disease Erectile dysfunction Hypercholesterolemia No known health problems Surgical History History of bilateral carpal tunnel release Social History Housing: House Alcohol intake: current Patient Tobacco Use Status: Never used Tobacco e-Cigarette/Vaping Use: Never Used Second Hand Smoke Exposure: No service: No Current occupational status: employed Cognitive needs: No Hearing needs: No Vision needs: Yes Assessment & Plan Assessment & Plan (1) Type 2 diabetes mellitus with hyperglycemia: Code(s): E11.65 - Type 2 diabetes mellitus with hyperglycemia Plan: Wt: 87 Kg ( 06/2023 ) Est kcal needs as per MSJ: 2300 (40% carb, 30% protein/fat) Est fluid needs as per 30 ml/d: 2600 Est prot per day as per 1 g/kg bw: 87 Recommend fiber intake : 8-10 g per day and gradually increase to 25-28 g per day for women and 35-38 g for men or as tolerated Recommend sodium intake per day : less than 1500 mg less than 2000 mg Educated patient on: ( R = reviewed V = verbalizes understanding N/R = needs review N/A = not applicable * Food sources of carbohydrate, adequate serving sizes and its role in various health conditions: R * Differences between complex carbohydrates a simple carbohydrates, role of fiber in diet: R * Lean protein sources of foods: R * Differences between types of fats and role in diet (mono on saturated fat fatty acids, saturated fatty acids, trans fats): N/R * Food sources of sodium in salt and healthy modifications for heart health in kidney health: N/R * Vitamins and minerals: R * Healthy plate method concept: R V * Physical activity: Benefits a precaution: R V * Hypoglycemia protocol (rule of 15): N/R * Dietary prevention of Hyperglycemia: R Patient Instructions: Have water, fruit/veg infused water as you continue to work on reducing sodas/empty calorie beverages Have a fruit in place of pastries, aim at least to 2 fruits a day Reduce total carbs as snack to less than 20 g carb and meal to less than 75 g Coding Level of Care Code Nutr Indiv Intake (68388) Diagnoses Type 2 diabetes mellitus with hyperglycemia E11.65 Time Spent (min) 30
[2023-06-18 14:33] VITALS: BMI 30.8
[2023-06-25 13:18] VITALS: BMI 30.8
== END 2023-06-18 15:29 | disposition home or self-care (01) ==
PROVIDERS: PCP Internal Medicine; Visit Provider Dietitian, Registered
DX: E11.65 Type 2 diabetes mellitus with hyperglycemia (principal)

== ENCOUNTER → 2023-06-18 14:26 | Outpatient (BNVA) | payer BC, SELFPAY | PROVIDERS: PCP Internal Medicine; Visit Provider Dietitian, Registered | DX: E11.65 Type 2 diabetes mellitus with hyperglycemia (principal); Z71.3 Dietary counseling and surveillance | CPT/HCPCS: 97802 ==

== ENCOUNTER 2023-07-14 14:32 | Outpatient (AMB) | payer BC, SELFPAY ==
[2023-07-14 14:33] VITALS: BP 140/86; PULSE 98; O2SAT 99
--- NOTE | 2023-07-14 14:33 | A.OFFPC_ITS ---
Vital Signs 07/14/23 14:33 Height 5 ft 6 in Weight 186 lb BMI 30.0 BP 140/86 H Blood Pressure Location Lt brachial Position Sitting Pulse 98 Pulse Source Pulse Oximeter Pulse Oximetry (%) 99 Oxygen Delivery Method Room Air Intake Visit Reasons: Weight Loss Stars Coordinator Required: No Allergies No Known Allergies Allergy (Verified 07/14/23 14:37) Medication List - Last Reconciled 07/14/23 by Isha Herzog MD blood sugar diagnostic (FreeStyle Lite Strips) As directed check the BS QD blood-glucose meter (FreeStyle Lite Meter kit) As directed hydrochlorothiazide 12.5 mg PO DAILY lancets (FreeStyle Lancets) As directed check BS QD lisinopril 5 mg PO DAILY metformin 500 mg PO BID naltrexone 25 mg (1/2 x 50 mg) PO DAILY naproxen 500 mg PO BID PRN 14 days vardenafil 20 mg PO DAILY Tobacco use date assessed: 07/14/23 Dental Screening Dental Screen Date: 07/14/23 HPI Weight Loss HPI Details 58-year-old obese male with diabetes siria litus hypercholesterolemia hypertension last seen in April 2023 and started on blood pressure medication patient is here for follow-up. 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 changed diet and eating heathy, noted weight loss and as for the BP - good at home but ran out of HCTZ 1 week and warned patient to call and refill can be done [facility] Medical History (Updated 07/14/23 @ 14:50 by Isha Herzog MD) Impaired glucose tolerance Obesity (BMI 30-39.9) Lumbar degenerative disc disease Erectile dysfunction Hypercholesterolemia No known health problems Surgical History History of bilateral carpal tunnel release Social History Housing: House Alcohol intake: current Patient Tobacco Use Status: Never used Tobacco e-Cigarette/Vaping Use: Never Used Second Hand Smoke Exposure: No service: No Current occupational status: employed Cognitive needs: No Hearing needs: No Vision needs: Yes Questionnaire PHQ-9 Over the last 2 weeks, how often have you been bothered by any of the following problems? 1. Little interest or pleasure in doing things: not at all 2. Feeling down, depressed, or hopeless: not at all 3. Trouble falling or staying asleep, or sleeping too much: not at all 4. Feeling tired or having little energy: not at all 5. Poor appetite or overeating: not at all 6. Feeling bad about yourself - or that you are a failure or have let yourself or your family down: not at all 7. Trouble concentrating on things, such as reading the newspaper or watching television: not at all 8. Moving or speaking so slowly that other people could have noticed. Or the opposite - being so fidgety or restless that you have been moving around a lot more than usual: not at all 9. Thoughts that you would be better off or of hurting yourself in some way: not at all Total score: 0 Depression Screening Interpretation: Negative Depression Screening Done: Yes Source: Developed by Drs. Len Villatoro, Riya Ignacio, Favio Breen and colleagues, with an educational irena from [employer] Thrive Questionnaire Date Thrive assessed: 07/14/23 AUDIT C Alcohol Use Questionnaire (AUDIT-C) 1. How often do you have a drink containing alcohol?: Monthly or less 2. How many drinks containing alcohol do you have on a typical day when you are drinking?: 1 or 2 3. How often do you have six or more drinks on one occasion?: Never Total Score: 1 TOREY-7 AMB Questionnaire TOREY-7 Date TOREY - 7 assessed: 07/14/23 Source: Developed by Drs. Len Villatoro, Riya Ignacio, Favio Breen and colleagues, with an educational irena from [employer] Physical exam (Primary Care) Vital Signs: Last Vital Signs Pulse 98 07/14/23 14:33 BP 140/86 H 07/14/23 14:33 Pulse Ox 99 07/14/23 14:33 Oxygen Delivery Method Room Air 07/14/23 14:33 BMI result Body Mass Index 30.0 Tobacco/Smoking Status: Tobacco use Status Tobacco use date assessed 07/14/23 07/14/23 14:39 Patient Tobacco Use Status Never used Tobacco 07/14/23 14:39 e-Cigarette/Vaping Use Never Used 07/14/23 14:39 PHQ-9: PHQ-9 Score PHQ-9: Total score 0 07/14/23 14:44 Depression Screening Interpretation: Negative Thrive Assessment: Date of Thrive Assessment Date Thrive assessed 07/14/23 07/14/23 14:39 Const General: alert; No acute distress Eyes Conjunctivae: conjunctivae normal Resp Auscultation: clear to auscultation bilaterally Cardio Rate: regular rate Rhythm: regular rhythm GI Inspection: Yes normal to inspection Extrem General: Yes normal to inspection and No edema Results AMB Hemoglobin A1c AMB Hemoglobin A1c 5.4 % Last Edit by DEVORAH Infante on 07/14/23 14:53 Assessment and Plan Assessment & Plan (1) Type 2 diabetes mellitus with hyperglycemia: Comment: Dr. Amor Code(s): E11.65 - Type 2 diabetes mellitus with hyperglycemia Plan: Decrease the amount of carbohydrate intake, pasta, bread, rice and potatoes are all sugar and that is aside from all the sweet stuff, remember that fruits are good but they are Sweet also. Hemoglobin A1c goal of less than 6.5. 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 Congratulated the patient to a very nice work on lowering down hemoglobin A1c. (2) Obesity (BMI 30-39.9): Code(s): E66.9 - Obesity, unspecified Plan: Diet and exercise noted weight loss ! (3) Hypertension: Code(s): I10 - Essential (primary) hypertension Plan: Continue with blood pressure medication. Decrease salt intake and exercise patient on lisinopril 5 mg once a day hydrochlorothiazide 12.5 mg once a day. Orders: Orders AMB Hemoglobin A1c Today E11.65 - Type 2 diabetes mellitus with hyperglycemia Medications: Refilled hydrochlorothiazide 12.5 mg PO DAILY 90 tabs 1RF I10 - Essential (primary) hypertension Coding Level of Care Code Est Pt Level 4 (58066) Diagnoses Type 2 diabetes mellitus with hyperglycemia E11.65 Obesity (BMI 30-39.9) E66.9 Hypertension I10
== END 2023-07-14 16:21 | disposition home or self-care (01) ==
PROVIDERS: PCP Internal Medicine; Visit Provider Internal Medicine
DX: E11.65 Type 2 diabetes mellitus with hyperglycemia (principal); E66.9 Obesity, unspecified; I10 Essential (primary) hypertension; Z68.30 Body mass index [BMI] 30.0-30.9, adult
CPT/HCPCS: 83036; 99214

== ENCOUNTER 2024-02-24 14:55 | Outpatient (AMB) | payer BC, SELFPAY ==
[2024-02-24 15:06] VITALS: BP 138/80; PULSE 76; O2SAT 97; BMI 31.6
--- NOTE | 2024-02-24 15:06 | A.OFFPC_ITS ---
Vital Signs 02/24/24 15:06 Height 5 ft 6 in Weight 196 lb BMI 31.6 BP 138/80 Blood Pressure Location Lt brachial Position Sitting Pulse 76 Pulse Source Pulse Oximeter Pulse Oximetry (%) 97 Oxygen Delivery Method Room Air Intake Visit Reasons: PE Allergies No Known Allergies Allergy (Verified 02/24/24 15:10) Medication List - Last Reconciled 02/24/24 by Isha Herzog MD blood sugar diagnostic (FreeStyle Lite Strips) As directed check the BS QD blood-glucose meter (FreeStyle Lite Meter kit) As directed hydrochlorothiazide 12.5 mg PO DAILY lancets (FreeStyle Lancets) As directed check BS QD lisinopril 5 mg PO DAILY metformin 500 mg PO BID naltrexone 25 mg (1/2 x 50 mg) PO DAILY naproxen 500 mg PO BID PRN 14 days vardenafil 20 mg PO DAILY Tobacco use date assessed: 07/14/23 Dental Screening Dental Screen Date: 07/14/23 Did you have a dental visit in the last 12 months?: Yes Did you have a dental problem in the last 6 months where you did not have access to dental care?: No Was dental information given to patient?: Patient has dentist HPI PE HPI Details 59-year-old obese male(noted 10 lb weigh t gain) with controlled diabetes mellitus hypertension coming in for physical exam. eye doctor and podiatric has a schedule [facility] Medical History (Updated 02/24/24 @ 15:39 by Isha Herzog MD) Impaired glucose tolerance Obesity (BMI 30-39.9) Lumbar degenerative disc disease Erectile dysfunction Hypercholesterolemia No known health problems Surgical History History of bilateral carpal tunnel release Family History (Updated 02/24/24 @ 15:27 by Isha Herzog MD) Father Prostate cancer Social History (Updated 02/24/24 @ 15:28 by Isha Herzog MD) Housing: House Alcohol intake: current Comment: once a week 2 beers Patient Tobacco Use Status: Never used Tobacco e-Cigarette/Vaping Use: Never Used Second Hand Smoke Exposure: No service: No Current occupational status: employed Cognitive needs: No Hearing needs: No Vision needs: Yes Questionnaire PHQ-9 Over the last 2 weeks, how often have you been bothered by any of the following problems? 1. Little interest or pleasure in doing things: not at all 2. Feeling down, depressed, or hopeless: not at all 3. Trouble falling or staying asleep, or sleeping too much: not at all 4. Feeling tired or having little energy: not at all 5. Poor appetite or overeating: not at all 6. Feeling bad about yourself - or that you are a failure or have let yourself or your family down: not at all 7. Trouble concentrating on things, such as reading the newspaper or watching television: not at all 8. Moving or speaking so slowly that other people could have noticed. Or the opposite - being so fidgety or restless that you have been moving around a lot more than usual: not at all 9. Thoughts that you would be better off or of hurting yourself in some way: not at all Total score: 0 Source: Developed by Drs. Len Villatoro, Riya Ignacio, Favio Breen and colleagues, with an educational irena from [employer] Thrive Questionnaire Date Thrive assessed: 07/14/23 I am a: Patient What is your living situation today?: I have a steady place to live Within the past 12 months, did the food you bought not last and you didn't have the money to get more?: Never true Within the past 12 months, did you worry whether your food would run out before you got money to buy more?: Never true Do you have trouble paying for medicines?: No Do you have trouble getting transportation to medical appointments?: No Do you have trouble paying your heating and electricity bill?: No Do you have trouble taking care of your child, family member or friend?: No Do you have trouble with day-to-day activities such as bathing, preparing meals, shopping, managing finances, etc.?: No Are you currently unemployed and looking for a job?: No Are you interested in more education?: No Please select the resources that you would like help with: None Currently or been in a relationship where the following occur: No concerns reported THRIVE Score: 0 AUDIT C Alcohol Use Questionnaire (AUDIT-C) 1. How often do you have a drink containing alcohol?: Never 3. How often do you have six or more drinks on one occasion?: Never Total Score: 0 TOREY-7 AMB Questionnaire TOREY-7 Date TOREY - 7 assessed: 02/24/24 Feeling nervous, anxious, or on edge: 0 = Not at all Not being able to stop or control worryin = Not at all Worrying too much about different things: 0 = Not at all Trouble relaxin = Not at all Being so restless that it is hard to sit still: 0 = Not at all Becoming easily annoyed or irritable: 0 = Not at all Feeling afraid as if something awful might happen: 0 = Not at all Total TOREY-7 score (0-4 normal; 5-9 mild; 10-14 moderate; 15-21 severe): 0 Source: Developed by Drs. Len Villatoro, Riya Ignacio, Favio Breen and colleagues, with an educational irena from [employer] Review of Systems Const Denies poor appetite and Denies weakness Eyes Denies no additional complaints ENT Reports Normal hearing present, Denies dizziness, Denies nasal congestion, Denies tinnitus and Denies sore throat Card Denies chest pain, Denies syncope, Denies rapid heart rate and Denies dyspnea Resp Denies cough and Denies dyspnea GI Denies change in stool character, Reports constipation, Denies diarrhea, Denies nausea and Denies vomiting Denies dysuria and Denies urinary frequency Neuro Reports Normal hearing present, Denies confusion, Denies dizziness, Denies syncope and Denies weakness Psych Denies confusion Physical exam (Primary Care) Vital Signs: Last Vital Signs Pulse 76 02/24/24 15:06 BP 138/80 02/24/24 15:06 Pulse Ox 97 02/24/24 15:06 Oxygen Delivery Method Room Air 02/24/24 15:06 BMI result Body Mass Index 31.6 Tobacco/Smoking Status: Tobacco use Status Tobacco use date assessed 07/14/23 02/24/24 15:12 Patient Tobacco Use Status Never used Tobacco 02/24/24 15:12 e-Cigarette/Vaping Use Never Used 02/24/24 15:12 PHQ-9: PHQ-9 Score PHQ-9: Total score 0 02/24/24 15:12 Thrive Assessment: Date of Thrive Assessment Date Thrive assessed 07/14/23 02/24/24 15:12 Currently or been in a relationship where the following occur: No concerns reported Const General: No confusion Orientation/consciousness: No confusion HENMT Head: Yes normocephalic Ears: external ears normal and TM's normal bilaterally Face and sinus: Yes normal facial exam Mouth: moist mucous membranes Throat: Yes tonsils normal Eyes Conjunctivae: conjunctivae normal Pupils: Equal, round and reactive pupils present and Pupil accommodation reflex normal Direct Ophthalmoscopy: normal light reflex Neck Neck: No lymphadenopathy Thyroid: Thyroid normal Chest Chest palpation & inspection: normal inspection of the chest Resp Effort & Inspection: normal respiratory effort and no audible wheezes Auscultation: clear to auscultation bilaterally, no crackles, no wheezes and lung sounds not diminished Cardio Rate: regular rate Rhythm: regular rhythm Peripheral pulses: radial pulses present and dorsalis pedis present GI Other: declined Palpation (GI): no masses Auscultation: normal bowel sounds and normoactive bowel sounds Rectal Exam - Male: Yes deferred Male General Exam: Yes normal external exam Skin Other: tinea pedis whitish rash L 4 and 5th toe interdigital pedal pulses good pin prick good Rashes: no rashes Neuro General: No confusion Cranial nerves: Yes Equal, round and reactive pupils present and Yes Normal hearing present Cognition (Neuro): normal cognition Gait exam (Neuro): Normal gait present Motor exam (neuro): 5/5 motor strength present throughout Deep tendon reflexes (DTR's): Right brachioradialis reflex intensity grade: 2+, Left brachioradialis reflex intensity grade: 2+, Right patellar reflex intensity grade: 2+ and Left patellar reflex intensity grade: 2+ Extrem General: No edema Assessment and Plan Assessment & Plan (1) Annual physical exam: Code(s): Z00.00 - Encounter for general adult medical examination without abnormal findings Plan: Patient is advised to eat healthy, keep well hydrated, keep active and have adequate sleep. (2) Obesity (BMI 30-39.9): Code(s): E66.9 - Obesity, unspecified Plan: Diet and exercise (3) Hypercholesterolemia: Code(s): E78.00 - Pure hypercholesterolemia, unspecified Plan: Avoid fried foods, chicken skin, eggs, butter margarine, pastries and meat. Be it pork or beef they have a lot of cholesterol LDL goal of less than 100 and triglyceride of less than 150. On no medication. (4) Hypertension: Code(s): I10 - Essential (primary) hypertension Plan: Continue with blood pressure medication. Decrease salt intake and exercise continue with hydrochlorothiazide and lisinopril (5) Type 2 diabetes mellitus with hyperglycemia: Comment: Dr. Amor Code(s): E11.65 - Type 2 diabetes mellitus with hyperglycemia Plan: Decrease the amount of carbohydrate intake, pasta, bread, rice and potatoes are all sugar and that is aside from all the sweet stuff, remember that fruits are good but they are Sweet also. Hemoglobin A1c goal of less than 6.5. On metformin 500 mg twice a day (6) Tinea pedis: Code(s): B35.3 - Tinea pedis Plan: clotrimazole cream advised to place interdigital area Orders: Orders Thyroid Stimulating Hormone Today E66.9 - Obesity, unspecified Prostate Specific Antigen Scr Today E66.9 - Obesity, unspecified Lipid Panel Today E66.9 - Obesity, unspecified, E78.00 - Pure hypercholesterolemia, unspecified Creatinine Urine Today E11.65 - Type 2 diabetes mellitus with hyperglycemia, E66.9 - Obesity, unspecified Hemoglobin A1c Today E66.9 - Obesity, unspecified Complete Blood Count Auto Diff Today E66.9 - Obesity, unspecified Comprehensive Met. Panel Today E66.9 - Obesity, unspecified Free T4 (Free Thyroxine) Today E66.9 - Obesity, unspecified Microalbumin, Random (w Creat) Today E11.65 - Type 2 diabetes mellitus with hyperglycemia, E66.9 - Obesity, unspecified Vitamin B12 and Folate Today E66.9 - Obesity, unspecified Medications: New clotrimazole 1% 1 appl topical BID 4 weeks 45 grams 0RF B35.3 - Tinea pedis Coding Level of Care Code Est Pt Prev Care 40-64y(37215) Diagnoses Annual physical exam Z00.00 Obesity (BMI 30-39.9) E66.9 Hypercholesterolemia E78.00 Hypertension I10 Type 2 diabetes mellitus with hyperglycemia E11.65 Tinea pedis B35.3
== END 2024-02-24 15:47 | disposition home or self-care (01) ==
PROVIDERS: PCP Internal Medicine; Visit Provider Internal Medicine
DX: Z00.00 Encounter for general adult medical examination without abnormal findings (principal); E11.65 Type 2 diabetes mellitus with hyperglycemia; E66.9 Obesity, unspecified; Z68.31 Body mass index [BMI] 31.0-31.9, adult; E78.00 Pure hypercholesterolemia, unspecified; I10 Essential (primary) hypertension; B35.3 Tinea pedis
CPT/HCPCS: 99396

== ENCOUNTER 2024-10-22 10:43 | Outpatient (AMB) | payer BC, SELFPAY ==
--- NOTE | 2024-10-22 11:13 | MHC.OFFWIV ---
Intake Vital Signs 10/22/24 11:14 Height 5 ft 6 in Weight 210 lb BMI 33.9 BP 158/80 H Blood Pressure Location Lt brachial Position Sitting Respiration 16 Pulse 116 H Pulse Source Pulse Oximeter Temp 98.5 F Temp Source Oral Pulse Oximetry (%) 98 Oxygen Delivery Method Room Air Intake Visit Reasons: EP fever, congestion, headache Intake Note: Pt is here today c/o congestion and severe headaches x5days Patient Tobacco Use Status: Never used Tobacco Allergies No Known Allergies Allergy (Verified 10/22/24 11:16) HPI EP fever, congestion, headache HPI Details This is a 59 year old male patient who presents to the [place] clinic today with report of 5 day history of severe sinus/facial pressure and headaches. He states he has some mild nasal congestion and cough, but his primary issue is the sinus symptoms. Denies fever/chills. Denies known exposure to sick contacts. Took an 800mg Ibuprofen with some benefit, however he is running low on these. [facility] Medical History Acute frontal sinusitis Impaired glucose tolerance Obesity (BMI 30-39.9) Lumbar degenerative disc disease Erectile dysfunction Hypercholesterolemia No known health problems Surgical History History of bilateral carpal tunnel release Family History Father Prostate cancer Social History Housing: House Alcohol intake: current Comment: once a week 2 beers Patient Tobacco Use Status: Never used Tobacco e-Cigarette/Vaping Use: Never Used Second Hand Smoke Exposure: No service: No Current occupational status: employed Cognitive needs: No Hearing needs: No Vision needs: Yes Review of Systems Const All systems reviewed & are unremarkable except as noted in HPI and below Physical Exam Vital Signs: Last Vital Signs Temp 98.5 F 10/22/24 11:14 Pulse 116 H 10/22/24 11:14 Resp 16 10/22/24 11:14 BP 158/80 H 10/22/24 11:14 Pulse Ox 98 10/22/24 11:14 Oxygen Delivery Method Room Air 10/22/24 11:14 BMI result Body Mass Index 33.9 Const General: cooperative and no acute distress Limitations: no limitations HEENT Head: Yes normal to inspection and Yes normocephalic Ears: hearing grossly normal bilaterally General nose exam: Normal external nose present Face and sinus: Yes sinus tenderness (maxillary and frontal) Mouth: Normal oral and palatal mucosa present Throat: Yes posterior oropharynx normal Neck Neck: Yes no lymphadenopathy Resp Effort & Inspection: normal respiratory effort Auscultation: clear to auscultation bilaterally Cardio Rate: regular rate Rhythm: regular rhythm Skin General skin exam: no rashes or lesions noted Extrem General: Yes capillary refill normal and Yes no clubbing, cyanosis or edema Psych Appearance: grossly normal Mental Status: mental status grossly normal Speech and movement: Normal speech and movement present Assessment & Plan Assessment & Plan (1) Acute frontal sinusitis: Code(s): J01.10 - Acute frontal sinusitis, unspecified Qualifiers: Recurrence: non-recurrent Qualified Code(s): J01.10 - Acute frontal sinusitis, unspecified Plan: Will start him on azithromycin. We reviewed indications, use, possible side effects of medication. I will also refill his ibuprofen, which we reviewed he should use sparingly given the high dose. Encouraged conservative measures as well with [id number] cold/ flu medication including decongestants for symptomatic management. If he does not improve, or if symptoms worsen, he can return to the clinic for further evaluation. He verbalizes understanding and agrees to plan Medications: New azithromycin For 250 mg dose pack: take 500 mg today (day 1), then 250 mg for 4 days (days 2-5) PO 6 tabs 0RF J01.10 - Acute frontal sinusitis, unspecified ibuprofen Do not take Naproxen while taking this medication. 800 mg PO Q8H PRN 30 tabs 0RF pain J01.10 - Acute frontal sinusitis, unspecified Coding Level of Care Code Est Pt Level 4 (82137) Diagnoses Acute non-recurrent frontal sinusitis J01.10 Recurrence: non-recurrent
--- OUTSIDE RECORDS SUMMARY | 2024-10-22 11:13 | XMS_ITS ---
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 [address] [place] [address] 09/08/2024 Samanta Melo Plan Of Treatment No Information Progress Notes * Chris HOLLOWAYsDOB:1965 (59 yo M)Acc No.[id number]:09/08/2024 Patient:?HOLLOWAY, Joshua :1965???Age:59 Y???Sex:Male Address:[address] [place] [address], [address] * true * Date:? Generated for Donald holman/Loraine/eTransmitting on:?10/22/2024 11:13 AM EDT
--- OUTSIDE RECORDS SUMMARY | 2024-10-22 11:13 | XMS_ITS ---
Author Organization [facility] Address [address] [place] [address] Care Team Providers Care Electric Welder Name Role Phone Isha Herzog Primary Care Provider Samanta Grimes Unavailable [phone] Hermila Rendon [phone] REASON FOR VISIT no ppwrk Encounters Encounter Location Date Provider Diagnosis [address] [address] 06/21/2024 Hermila Rendon Plan Of Treatment No Information Progress Notes * Chris HOLLOWAYsDOB:1965 (59 yo M)Acc No.[id number]:06/21/2024 Progress Notes Patient:?Joshua HOLLOWAY Provider:?Hermila Rendon DPM :1965???Age:59 Y???Sex:Male Deny e:06/21/2024 Address:[address] [place], [place] [id number] Pcp:Isha Herzog Subjective: * Chief Complaints: * ???1. No ppwrk. * Medical History:? Objective: * Vitals:? Assessment: Plan: * Treatment: * Images: * The named appointment provid er may or may not be the originator of this progress note, and it is not deemed complete until electronically signed by the appointment provider. Sign off status: Pending * Provider:?Hermila Rendon DPM Date:?2024 Generated for Donald holman/Loraine/eTransmitting on:?10/22/2024 11:13 AM EDT
[2024-10-22 11:14] VITALS: BP 158/80; PULSE 116; RESP 16; TEMP 36.9; O2SAT 98; BMI 33.9
--- OUTSIDE RECORDS SUMMARY | 2024-10-22 11:14 | XMS_ITS | Patient Health Record ---
Author Organization [facility] Address [address] [place] [address] Care Team Providers Care Bulk Driver Name Role Phone Isha Palm Primary Care Provider Samanta Grimes Unavailable [phone] Hermila Rendon Unavailable [phone] Reason For Referral No Information Medications Medication SIG (Take, Route, Frequency, Duration) Notes Start Date End Date Status metFORMIN HCl 500 MG 1 tablet with a iris l Orally Once a day Active hydroCHLOROthiazide 12.5 MG 1 capsule in the morning Orally Once a day Active Lisinopril 5 MG 2 tablets Orally Onc e a day Active Social History Tobacco Use: Social History Observation Description Date Details (start date - stop date) Never Smoker NA - NA Tobacco use other than smoking: Question Answer Notes Are you an other tobacco user? No Tobacco Control (Standard) Question Answer Notes Tobacco use: Nonsmoker AUDIT-C (Standard) Question Answer Notes Did you have a drink containing alcohol in the p ast year? No Points 0 Interpretation Negative Encounters Encounter Location Date Provider Diagnosis [facility] [address] [place] [address] [facility] [address] [place] [address] [facility]/15/2024 Hermila Justice [facility] [address] [place] [address] 09/08/2024 Samanta Melo Plan Of Treatment No Information Insurance Providers Payer Name Payer Address Payer Phone Subscriber Number Group Number Insured Name Patient Relationship to Insured Coverage Start Date Coverage End Date [employer] [address] [place] [address] [id number] Joshua Fernandes Self - patient is the insured Medical (General) History Medical History History ICD Code Diabetic
--- OUTSIDE RECORDS SUMMARY | 2024-10-22 11:14 | XMS_ITS ---
Author Organization 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 Name Role Phone Isha Herzog Primary Care Provider Samanta Grimes Unavailable [phone] Medications Medication SIG (Take, Route, Frequency, Duration) [...] Negative Encounters Encounter Location Date Provider Diagnosis [facility] [address] [place] [address] 09/08/2024 Samanta Melo Plan Of Treatment No Information Progress Notes * Chris HOLLOWAYsDOB:1965 (59 yo M)Acc No.[id number]:09/08/2024 Progress Notes Patient:?Joshua HOLLOWAY Provider:?Samanta Melo DPM :1965???Age:59 Y???Sex:Male Deny e:09/08/2024 Address:[address] [place], [place] [id number] Pcp:Lorenver Po Subjective: * Chief Complaints: * ??? * ROS:?General/Constitutional:?Nausea?denies.?Vomiting?denies.?Hunger Thirst?denies.?Loss appetite?denies.?Chills?denies.?Fatigue?denies.?Fever?denies.?Night Sweats?denies.?Unexplained weight loss?denies.?Unexplained weight gain?denies.?HEENTM:?Dentures?denies.?Dizziness?denies.?Glasses/contacts?admits.?Retinopathy?de nies.?Blurred/double vision?denies.?TMJ?denies.?Discharge/drainage?denies.?Implants?denies.?Sore throat?denies.?Dental implants?denies.?Hard of hearing ?denies.?Difficulty chewing/swallowing/speaking?denies.?Nose bleeds?denies.?Sore mouth?denies.?Respiratory:?On Oxygen?denies.?Pneumonia/pleurisy?denies.?Bronchitis?denies.?Emphysema?denies.?C oughing?denies.?Cough blood?denies.?Shortness of breath?denies.?Wheezing?denies.?Cardiovascular:?Pacemaker?denies.?MVP?denies.?WPW?denies.?CHF?denies.?Heart attack?denies.?Septal defect?denies.?Rapid beat?denies.?Chest pain ?denies.?Atrial Fib.?denies.?Murmur/Palpitations?denies.?Gastrointestinal:?Hemorrhoids?denies.?Stomach/Abdominal pain?denies.?Dark blood stool?denies.?Irritable bowel ?denies.?Constipation?denies.?Diarrhea?denies.?Hematology:?Swelling?denies.?Clots?denies.?Varicose Veins?denies.?Bruising?denies.?Bleeding problem?denies.?Genitourinary:?Blood urine?denies.?Frequent/Painfu/urination/bladder control?denies.?Kidney stones?denies.?Infection (UTI)?denies.?Nephropathy?denies.?sex trans dis (STD)?denies.?Prostate?denies.?Musculoskeletal:?Hammertoes?denies.?Bunions?denies.?Back Pain?denies.?Muscle Cramps/ Resting?denies.?Muscle cramps / walking?denies.?Generalized aches and pains?denies.?Weakness?denies.?Integ.:?Null?denies.?Scars?denies.?Corns/calluses?denies.?Ingrown nails?denies.?Painful nails?denies.?Open Sores?denies.?Rashes?denies.?Neurologic:?Difficulty sleeping?denies.?Brain disorder?denies.?Numbness?denies.?Balance trouble?denies.?Confusion?denies.?Fainting/blackouts?denies.?Tingling?denies.?Tr emors?denies.? * Medical History:?Diabetic. * Family History:?Mother: eric dumont.?Father: alive.? * Social History:?Tobacco Use:?Tobacco use other than smoking?Are you an other tobacco user??No ?Tobacco Control (Standard)?Tobacco use:?Nonsmoker ???Drugs/Alcohol:?Drugs?Have you used drugs other than those for medical reasons in the past 12 months??No ???Miscellaneous:?Caffeine: no. ?Children: no. ?Exercise: no. ?Marital status: Single, single,. ?Occupation: Works Part-time. ???Drug/Alcohol:?AUDIT-C (Standard)?Did you have a drink containing alcohol in the past year??No ?Points?0 ?Interpretation?Negative * Medications:?Taking Lisinopr il 5 MG Tablet 2 tablets Orally Once a day , Taking metFORMIN HCl 500 MG Tablet 1 tablet with a meal Orally Once a day , Taking hydroCHLOROthiazide 12.5 MG Capsule 1 capsule in the morning Orally Once a day Objective: * Vitals:? Assessment: Plan: * Treatment: * Images: * The named appointment provid er may or may not be the originator of this progress note, and it is not deemed complete until electronically signed by the appointment provider. Sign off status: Pending * Provider:?Samanta Melo DPM Date:? Generated for Donald holman/Loraine/Iza on:?10/22/2024 11:13 AM EDT
== END 2024-10-22 11:48 | disposition home or self-care (01) ==
PROVIDERS: PCP Internal Medicine; Visit Provider Nurse Practitioner Family
DX: J01.10 Acute frontal sinusitis, unspecified (principal)

== ENCOUNTER → 2024-10-22 10:43 | Outpatient (BNVA) | payer BC, SELFPAY | PROVIDERS: PCP Internal Medicine; Visit Provider Nurse Practitioner Family | DX: Z13.89 Encounter for screening for other disorder (principal) ==